=== PATIENT | female | born 1975 | race Two or more races ===

== ENCOUNTER 2017-04-15 19:10 | Emergency (ER) | payer MEDICAID ==
[~2017-04-15] VITALS: Ht 167.6 cm; Wt 77.0 kg
[~2017-04-15 19:10] MED LIST: CELE200 PO; HYDR1TAB69 PO; HYDR25TA4 PO; ROB500 PO
[2017-04-15 19:14] VITALS: BP 160/85; PULSE 103; RESP 18; O2SAT 100
--- NOTE | 2017-04-15 19:26 | ED.REPORT ---
HPI-Bite: Human/Animal Date of Service Apr 15, 2017 ED Provider: Doc,Ed MD History of Present Illness: holding a cat and the dog came to attack her. bites on both hands. up to date on tdap. no primary care. took some advil earlier Nursing Notes Stated Complaint: CAT AND DOG BITES BOTH HANDS Chief Complaint: Skin Rash/Abscess Nursing Notes Reviewed: Yes Allergies: Coded Allergies: No Known Allergies (Verified , 04/15/17) Scheduled Celecoxib-Expunged Drug, Do Not Renew! (Celecoxib-Expunged Drug, Do Not Renew!) 200 Mg Capsule 200 MG PO DAILY Hydrochlorothiazide-Expunged, Do Not Renew! (Hydrochlorothiazide-Expunged, Do Not Renew!) 25 Mg Tablet 25 MG PO DAILY Methocarbamol-Expunged Drug, Do Not Renew! (Robaxin-Expunged Drug, Do Not Renew! ) 500 Mg Tablet 500 MG PO BID Scheduled PRN Hydrocod/APAP-Expunged, Do Not Renew! (VICODIN 5/500-Expunged Drug, Do Not Renew ) 1 Each Tablet 1-2 TAB PO BID PRN PRN General Time Seen by MD: 19:25 Chief Complaint Animal bite, Cat bite, Dog bite Hx Obtained From: Patient Onset Occurred: Yesterday Risk Factors Rabies Risk Stratification Cat - low risk Dog - low risk Domestic animal Vaccinations not UTD Bite Infection Risk: Hand bite Past Medical History Past Medical History Notes: In 2009 had on the right eye an abscess with periorbital cellulitis. Past Medical History denies Past Surgical History breast abscess Reports: Smoking History Current Every Day Smoker (5 cig a day for 23 years) Social History Alcohol Use: Denies alcohol use Drug Use: Denies drug use Occupation single, no work or school 04/15/2017 Ambulatory Status Independent Review of Systems Basic Review of Systems Eyes: Vision NL, No discharge Musculoskeletal: No extremity swelling, No extremity pain, Full range of motion , Joints NL Psychiatric: Normal thought content Physical Exam Vital Signs Vital Signs (First) Date Time Temp Pulse Resp B/P Pulse Ox O2 Delivery O2 Flow Rate FiO2 04/15/17 19:14 36.8 103 18 160/85 100 Room Air Initial VS: Reviewed, Vital signs normal Head / Eyes: Atraumatic, Normocephalic, PERRL ENT: Mucous membranes moist, Conjunctiva normal, No scleral icterus Neck: Supple, Non-tender, Full range of motion Respiratory: Breath sounds normal, Clear to auscultation, No respiratory distress Cardiovascular: Regular rate & rhythm, Intact distal pulses Abdomen / GI: Soft, Non-tender, No guarding, No rebound, No distention Back: No CVA tenderness Lymphatic: No lymphadenopathy Extremities: Vascular intact, Neuro intact, No swelling, No tenderness Psychiatric: Mood/affect normal, Behavior normal, Normal thought content General/Constitutional: Awake, Alert, No acute distress, Well appearing, Well developed, Well hydrated, Well nourished, Cooperative, Not toxic appearing Skin: Atraumatic, Color NL, No rash, Warm, Dry, Intact Head / Eyes: Atraumatic, Normocephalic, PERRL, EOMI Respiratory / Chest: Atraumatic, Breath sounds NL, Breath sounds = bilat, No respiratory distress Cardiovascular: Heart rate NL, Regular rhythm, Heart sounds NL, No gallop both hands have full range of motion. No sign of erthyma. fingers pads with bite wright have mild swelling, no sign of increased warmth Interpretation & Diagnostics Interpretation & Diagnostics: Negative bilateral hands per wet read by KOJO. No sign of gas formation or extensive soft tissue swelling. Procedures Procedure Notes: Re-Eval/Medical Decision Med Decision/Clinical Course 42 year old female presents to the ER for evualation of cat and dog bites that occured yesterday. Patient states she is up to date on her tdap. X-ray does not show any gas formation. Patient with excellent range of motion. No sign of infection in the joint or soft tissue or gas formation. Discharge & Departure Impression: Primary Impression: Cat bite involving extremity Additional Impression: Dog bite of extremity Disposition: Home Patient Instructions: Animal Bite (ED) Additional Instructions: The x-ray does not show any gas formation. That is good! Continue with augmentin 1 in the am and pm for 10 days. Continue with ibuprofen 800 mg 3 times a day. Can use hydrocodone 1 at night as needed for severe pain.Continue with movement. At present time, there is no sign of infection. I am sorry this happened. Referrals: [facility] EDSupervising Provider for APC: Epi Funez MD copies to: [facility] Mone Davis Apr 15, 2017 19:26
[2017-04-15] MEDS ORDERED: Amoxicillin-Clav 875-125 mg Tablet PO ONE (19:40)
--- NOTE | 2017-04-15 21:22 | DRSVH ---
PROCEDURE: XR BILAT HAND 3VW INDICATIONS: multiple cat bites to multiple fingers TECHNIQUE: 6 views of the hand(s) acquired. COMPARISON: None. FINDINGS: Bones: No fractures or dislocations. Carpal bones are normally aligned. No suspicious bony lesions . No focal osseous destruction Soft tissues: No suspicious soft tissue calcifications. No radiopaque foreign body seen. IMPRESSION: No fracture. No radiopaque foreign body seen. Dictated by: Kyle Stephens M.D. on 04/15/2017 at 21:18 Approved by: Kyle Stephens M.D. on 04/15/2017 at 21:19
[2017-04-15 21:23] VITALS: BP 144/86; PULSE 82; RESP 20; O2SAT 100
== END 2017-04-15 21:24 | disposition home or self-care (01) ==
LOC: SED 19:10
DX: S61.452A Open bite of left hand, initial encounter (principal); S61.451A Open bite of right hand, initial encounter; W55.01XA Bitten by cat, initial encounter; W54.0XXA Bitten by dog, initial encounter; Y92.9 Unspecified place or not applicable; Y93.K9 Activity, other involving animal care; Y99.8 Other external cause status; I10 Essential (primary) hypertension; F17.200 Nicotine dependence, unspecified, uncomplicated
CPT/HCPCS: 73130; 96372; 99284; J1885